=== PATIENT | male | born 1995 | race Hispanic/Latino ===

== ENCOUNTER 2023-08-31 15:39 | Emergency (ER) | payer SELFPAY ==
[2023-08-31 15:43] VITALS: BP 134/91
--- NOTE | 2023-08-31 16:08 | ED.SKININJ ---
HPI-Injury
General
Chief Complaint: Skin Problem
Source: patient
Exam Limitations: none
Time Seen by Provider: 08/31/23 15:56
Nursing documentation reviewed up to this point in time: agreed with
History of Present Illness-Injury
Is this injury a work related problem?: No
Is pt an associate of [facility]/[place]?: No
Initial Injury comments:
Patient to ED with complaint of contact dermatits. States he was treated with oral steroid (6 days) 2 weeks ago but rash returned once med was complete. Reports rash is 'everywhere'. Brought self to ED for eval.
Past History
Past History
ED Past Medical History: None
ED Past Surgical History: None
Review of Systems
Review of Systems
Allergies reviewed?: Yes
All Other Systems: ROS reviewed and negative except as documented in HPI and ROS
Constitutional: Reports no symptoms
EENT: Reports no symptoms
Respiratory: Reports no symptoms
Cardiac: Reports no symptoms
Musculoskeletal: Reports no symptoms
Skin: Reports itching and rash (Generalized rash (poison sumac))
Neurological: Reports no symptoms
Psychiatric: Reports no symptoms
Phy Exam
General Physical Exam
General Presentation: well appearing and no apparent distress
General age: appears stated age
General Skin: warm and dry
General Habitus: normal
Musculoskeletal Exam
Musculoskeletal Exam: full ROM and neuro vasc intact
Skin Exam
Skin Exam: normal color, warm/dry and other (Contact dermatitis - generalized)
Psychiatric Exam
Psychiatric Exam: normal mood/affect
Course
Orders/Labs/Results
Orders:
Orders
08/31/23 16:04
Dexamethasone Pf [Decadron] 10 mg PO NOW STA
Vital Signs
Initial and Last Documented VS:
Initial Vital Signs
Temp Pulse Resp BP Pulse Ox
98.6 F 122 20 134/91 97
08/31/23 15:43 08/31/23 15:43 08/31/23 15:43 08/31/23 15:43 08/31/23 15:43
Last Documented Vital Signs
Temp Pulse Resp BP Pulse Ox
98.6 F 105 16 146/83 100
08/31/23 15:43 08/31/23 16:21 08/31/23 16:21 08/31/23 16:21 08/31/23 16:21
*Critical Care Note
Total Time (30-74mins, 75-104mins- exclusive of procedures): Not Applicable
ED Attending Note
-
Portions of this chart may have been created with voice recognition software.� Occasional wrong word or��sound alike� substitutions may have occurred due to the inherent limitations of voice recognition software.
Discharge Plan
Departure
Patient Disposition: Home (Routine Discharge)
Date of Disposition: 08/31/23
Time of Disposition: 16:05
Patient with high blood pressure during this ER visit?: No
Condition: Good
Covid-19: Not Applicable
Discharge Problem:
Contact dermatitis
Instructions: Contact dermatitis
Prescriptions:
New
prednisone 10 mg Tablet
See Rx Instructions .ROUTE .COMPLEX Qty: 30 0RF
Rx Instructions:
Take By Mouth:
40 mg daily x3 days, 30 mg daily x3 days,
20 mg daily x3 days, 10 mg daily x3 days.
Activity Restrictions/Additional Instructions:
Follow up with your family doctor.
Interventions
Interventions:
*Risk Screen - Suicide Last Done: 08/31/23 15:43
*General Assessment Last Done: 08/31/23 15:43
*Neglect/Abuse Screening Last Done: 08/31/23 15:43
ED- Fall Risk Assessment Last Done: 08/31/23 16:22
*ED COVID-19 Vaccine History Last Done: 08/31/23 16:11
*Nursing Disposition Last Done: 08/31/23 16:22
ED-Skin Assessment Last Done: 08/31/23 16:22
Discharge Date and Time
Discharge Date/Time: 08/31/23 16:22
Print Language: SAMI
[2023-08-31] MEDS: DECADRON 10 MG PO (16:10)
[2023-08-31 16:21] VITALS: BP 146/83
== END 2023-08-31 16:22 | disposition home or self-care (01) ==
LOC: EMR 15:39
PROVIDERS: EMERGENCY PHYSICIAN Emergency Medicine; FAMILY PHYSICIAN Family Medicine
DX: L23.7 Allergic contact dermatitis due to plants, except food (principal); L29.9 Pruritus, unspecified; Z91.018 Allergy to other foods; Z91.010 Allergy to peanuts; Z91.048 Other nonmedicinal substance allergy status
CPT/HCPCS: 99283